=== PATIENT | female | born 1940 | race Caucasian/White ===

== ENCOUNTER → 2020-04-01 | Outpatient (REF) | payer OTHER ==
[2020-04-01 13:54] LABS: HEMOGLOBIN A1c 5.9 %
[2020-04-01 14:32] LABS: ALBUMIN 3.2 GM/DL (3.2-5.2); ALT/SGPT 47 U/L (12-78); BILIRUBIN,TOTAL 0.4 MG/DL (0.2-1.0); BLOOD UREA NITROGEN 17 MG/DL (7-18); CALCIUM LEVEL 8.9 MG/DL (8.8-10.2); CARBON DIOXIDE LEVEL 30 MEQ/L (21-32); CHLORIDE LEVEL 101 MEQ/L (98-107); CHOLESTEROL LEVEL 195 MG/DL (<200); CHOLESTEROL RISK RATIO 3.305 (<5); CREATININE FOR GFR 0.69 MG/DL (0.55-1.30); GLOMERULAR FILTRATION RATE > 60.0 (>32); GLUCOSE, FASTING 99 MG/DL (70-100); HDL CHOLESTEROL 59 MG/DL (>40); LDL CHOLESTEROL 113 MG/DL (<100); NON-HDL-C 136 MG/DL; POTASSIUM SERUM 4.1 MEQ/L (3.5-5.1); SODIUM LEVEL 137 MEQ/L (136-145); TOTAL 25(OH) VITAMIN D 33.5 NG/ML (30.0-100.0); TOTAL PROTEIN 7.3 GM/DL (6.4-8.2); TRIGLYCERIDES LEVEL 116 MG/DL (<150)
[2020-04-01 14:37] LABS: CREATININE, URINE 21.8 MG/DL; MALB URINE SIEMENS < 5.0 MG/L; MAU/CREAT RATIO 22.9 MCG/MG (0.0-30.0)
== END ==
LOC: M SFHCPLAZ 11:40
PROVIDERS: ATTEND Nurse Practitioner Adult Health
DX: I10 Essential (primary) hypertension (principal); E11.9 Type 2 diabetes mellitus without complications; E55.9 Vitamin D deficiency, unspecified; E03.9 Hypothyroidism, unspecified; Z13.220 Encounter for screening for lipoid disorders

== ENCOUNTER → 2021-01-06 | Outpatient (CLI) | payer OTHER ==
[2021-01-06 13:53] LABS: HEMOGLOBIN A1c 5.7 %
[2021-01-06 14:18] LABS: BILIRUBIN,TOTAL 0.3 MG/DL (0.2-1.0); CALCIUM LEVEL 8.8 MG/DL (8.8-10.2); CREATININE FOR GFR 0.98 MG/DL (0.55-1.30); POTASSIUM SERUM 4.2 MEQ/L (3.5-5.1)
[2021-01-06 14:19] LABS: CHOLESTEROL RISK RATIO 2.913 (<5); THYROID STIMULATING HORMONE 1.3 uIU/ML (0.358-3.740); TOTAL 25(OH) VITAMIN D 40.2 NG/ML (30.0-100.0); TOTAL PROTEIN 6.9 GM/DL (6.4-8.2)
--- NOTE | 2021-01-08 07:53 | REP ---
INDICATION: LOW BACK PAIN. COMPARISON: None. TECHNIQUE: AP and lateral views of the lower thoracic/lumbar spine FINDINGS: Advanced degenerative changes at the T12-L1 level including endplate sclerosis, joint space narrowing and bridging osteophytosis along with hypertrophic facet changes. Moderate to advanced degenerative changes are also noted throughout the remainder of the visualized lower thoracic and lumbosacral spine. Findings include endplate sclerosis, disc space narrowing, marginal osteophytosis and facet hypertrophy. No evidence for acute fracture/compression injury. IMPRESSION: Moderate to advanced multilevel degenerative spondylosis. <Electronically signed by Ferdinand Freire > 01/08/21 [id number]
== END ==
LOC: M PLAIMG 10:38
PROVIDERS: ATTEND Nurse Practitioner Adult Health
DX: M54.50 Low back pain, unspecified (principal)

== ENCOUNTER 2021-02-20 11:46 | Emergency (ER) | payer OTHER ==
[~2021-02-20] VITALS: Ht 162.6 cm; Wt 75.8 kg
--- OUTSIDE RECORDS SUMMARY | 2021-02-20 11:54 | CCD ---
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 Name Role Phone Octavio Tanya Unavailable PROBLEMS Type Condition ICD9-CM Code [id number] Code Onset Dates Condition S tatus W/U Status Risk SNOMED Code Notes Problem Vitamin D deficiency E55.9 Active confirmed 63697334 Problem Headache syndrome G44.89 Active confirmed 23 6812586 Problem Primary osteoarthritis involving multiple joints M 89.49 Active confirmed 162354948 Problem Essential hypertension I10 Active confirmed 53778390 Problem Neuropathy G62.9 Active confirmed 169967780 Problem Type 2 diabetes mellitus wit hout complication, without long-term current use of insulin E11.9 Active confirmed 668369814 Problem Anxiety F41.9 Active confirmed 07758682 Problem Acquired hypothyroidism E03.9 Active confirmed 088880399 Problem Sjogren's syndrome, with unspecified organ involvement M35.00 Active confirmed 06459193 Problem Hypothyroidism (acquired) E03.9 Active confirmed 124323787 Problem Frequent falls R29.6 Active confirmed 31182 2002 Problem Diabetes mellitus type 2 with complications E11.8 Active confirmed 63379545 ALLERGIES Allergen (clinical drug ingredient) Drug/Non Drug Allergy do cumented on EMR Reaction Allergy Type Onset Date Status pseudoephedrine Pseudoephedrine HCl([facility] Code:[address]-63) unkn own Drug Allergy Active ENCOUNTERS from 1940 to 2020-11-25 Encounter Location Date Provider Diagnosis [address] [phone] [place] [address] Nov, Tanya Cunningham IMMUNIZATIONS Vaccine Route Administration Date Status COVID-19 dose #2 given elsewhere Unspecified Unknown May 09, 2020 Administered COVID-19 dose #1 given elsewhere Unspecified Unknown Apr 07, 2020 Administered SOCIAL HISTORY Tobacco Use: Social History Observation Description Date Details (start date - stop date) Former Smoker Sex Assigned At : Social History Observation Description Sex Assigned At Unknown Education: Question Answer Notes Level of Education: Finished College Language: Question Answer Notes Languages spoken: marshallese Shinto: Question Answer Notes Shinto 08 Hinduism Sexual Hx: Question Answer Notes Had sex in the last 12 months (vaginal, oral, or anal)? No Have you ever had an STD? No Alcohol Screening: Question Answer Notes Did you have a drink containing alcohol in the past year? No Points 0 Interpretation Negative Tobacco Use: Question Answer Notes Are you a: former smoker How long has it been since you last smoked? > 10 years REASON FOR REFERRAL No Information VITAL SIGNS No information MEDICATIONS Medication SIG (Take, Route, Frequency, Duration) Notes Start Da te End Date Status miSOPROStol 100 MCG TAKE 2 TABLETS BY MOUTH TWICE DAILY for 90 Active Omeprazole Magnesium 20 MG 1 tablet 30 minutes before morning meal Orally Once a day for 30 day(s) Active Amitriptyline HCl 75 MG 1 tab Orally before bedtime for 90 day(s) Active Glucosamine Chondroitin Plus - 1 capsule 1500/1200 Orally daily Active Womens One Daily - 1 tab Orally Daily Active Metoprolol Succinate ER 50 MG 1 tablet Orally Once a day for 90 days Active Calcium 500+D3 500-400 MG-UNIT 1 tablet with a meal Or ally Once a day for 30 day(s) Active Synthroid 75 MCG TAKE 1 TABLET BY MOUTH ONCE DAILY IN THE MORNING ON AN EMPTY STOMACH for 90 Active Sertraline HCl 25 MG TAKE 1 TABLET BY MOUTH ONCE DAILY for 90 Active ZyrTEC Allergy 10 MG 1 tablet Orally Once a day for 30 day(s) Active busPIRone HCl 10 MG 1 tablet Orally Twice a day prn anxiety attack for 30 days May, Active AREDS OTC Active Diclofenac Sodium 75 MG TAKE 1 TABLET BY MOUTH TWICE DAILY for 90 Active PROCEDURES No Information RESULTS No Results REASON FOR VISIT medication MEDICAL (GENERAL) HISTORY Type Description Date Medical History diabetes mellitus type 2 Medical History essential hypertension Medical History cirrhosis cryptogenic Medical History abnormal liver function test s, related to known history of cirrhosis Medical History headache syndrome Medical History hypothyroidism Medical History sjogrens syndrome Medical History vitamin D did efficiency Medical History neuropathy Medical History anxiety and depression Medical History colonic diverticulosis Medical History esophageal reflux Medical History thrombocytopenia Medical History DEXA scan March 2019 Medical History former smoker, stopped in , smoked for 27 years, 1 pack per day Surgical History breast reduction Surgical History tubal ligation Surgical History colonoscopy 04/03/2016 Goals Section No Information Health Concerns No Information MEDICAL EQUIPMENT No Information MENTAL STATUS No Information FUNCTIONAL STATUS No Information ASSESSMENTS No Information PLAN OF TREATMENT Medication Medication Name Sig Start Date Stop Date Synthroid 75 MCG TAKE 1 TABLET BY MOUTH ONCE DAILY IN THE MORNING ON AN EMPTY STOMACH for 90 Amitriptyline HCl 75 MG 1 tab Orally before bedtime for 90 day(s ) miSOPROStol 100 MCG TAKE 2 TABLETS BY MOUTH TWICE DAILY for 90 Diclofenac Sodium 75 MG TAKE 1 TABLET BY MOUTH TWICE DAILY for 90 busPIRone HCl 10 MG 1 tablet Orally Twice a day prn anxiety attack for 30 days May, Metoprolol Succinate ER 50 MG 1 tablet Orally Once a day for 90 days Sertraline HCl 25 MG TAKE 1 TABLET BY MOUTH ONCE DAILY for 90 Next Appt Details Provider Name:Tanya Cuninngham, 01:00:00 PM, [address] [facility], , [place], [address], Insurance Providers Payer Name Payer Address Payer Phone Insured Name Patient Relati onship to Insured Coverage Start Date Coverage End Date [facility] [address] [address] [facility] [phone] ANDREW FULLER self
--- OUTSIDE RECORDS SUMMARY | 2021-02-20 11:54 | CCD ---
Author Author [facility] Organization [facility] Address Unknown Phone Unavailable Care Team Providers Care Acid Blower Name Role Phone Tanya Cunningham Unavailable PROBLEMS Type Condition ICD9-CM Code DIV85-HB Code Onset Dates Condition S tatus W/U Status Risk SNOMED Code Notes Problem Vitamin D deficiency E55.9 Active confirmed 73472867 Problem Type 2 diabetes mellitus wit hout complication, without long-term current use of insulin E11.9 Active confirmed 305649555 Problem Acquired hypothyroidism E03.9 Active confirmed 375688069 Problem Essential hypertension I10 Active confirmed 53135805 Problem Neuropathy G62.9 Active confirmed 208477047 Problem Anxiety F41.9 Active confirmed 11196722 Problem Headache syndrome G44.89 Active confirmed 23 8671253 Problem Abnormal liver function test R94.5 Active confirme d 769354012 Problem Diabetes mellitus type 2 with complications E11.8 Active confirmed 14005342 Problem Other chronic pain G89.29 Active confirmed 8 9077715 Problem Frequent falls R29.6 Active confirmed 77616 2002 Problem 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 Code:[address]-87) unkn own Drug Allergy Active ENCOUNTERS from 1940 to 2020-12-19 Encounter Location Date Provider Diagnosis [address] [phone] [place] [address] 30 Nov, 2020 Tanya Cunningham Diabetes mellitus type 2 wit h complications E11.8 ; Medicare annual wellness visit, subsequent Z00.00 ; Essential hypertension I10 ; Sjogren's syndrome, with unspecified organ involvement M35.00 ; Abnormal liver function test R94.5 ; Biliary cirrhosis K74.5 ; Headache syndrome G44.89 ; Vitamin D deficiency E55.9 ; Anxiety F41.9 ; Primary osteoarthritis involving multiple joints M89.49 ; Frequent falls R29.6 ; Neuropathy G62.9 ; Low back pain M54.5 ; Acquired hypothyroidism E03.9 ; Change in vision H53.9 ; Screening, lipid Z13.220 and Seborrheic dermatitis L21.9 IMMUNIZATIONS Vaccine Route Administration Date Status COVID-19 [...] College Language: Question Answer Notes Languages spoken: new zealander Sikhism: Question Answer Notes Sikhism 08 Latter-Day Sexual Hx: Question Answer Notes Had sex [...] smoked? > 10 years REASON FOR REFERRAL from 1939 to 2020-12-19 Reason moved to [facility], hx Sjogrens would like to continue to follow with Manager Military Diagnosis 1 Sjogren's syndrome, with uns pecified organ involvement (M35.00) Referral Organization [facility] Sharif Referring Provider First Name Tanya Referring Provider Last Name Octavio Referring Provider Specialty Family Medicine Referred Organization [facility] Rheumatology Referred Provider Jenifer Desai Referred Address [address] [place] [phone], [place],[address] Referred Provider Specialty Rheumatology Referral Priority Routine General Notes Sammie Jalloh 12/15/2020 1:4 5:56 PM > referral faxed Reason please eval and treat giovanny parker in vision requesting Dr. Cordero if possible Diagnosis 1 Sjogren's syndrome, with uns pecified organ involvement (M35.00) Diagnosis 2 Change in vision (H53.9) Referral Organization [facility] [place] Referring Provider First Name Tanya Referring Provider Last Name Octavio Referring Provider Specialty Family Medicine Referred Provider Jonny Martinez Referred Provider Specialty Ophthalmology Referral Priority Routine General Notes JallohAndrew sandovalar 12/15/2020 1:4 6:33 PM > referral faxed VITAL SIGNS Weight 166 lbs Nov, 2020 Weight-kg 75.3 kg Nov, 2020 Height 62 in Nov, 2020 BMI 30.36 kg/m2 Nov, Heart Rate 80 /min Nov, Respiratory Rate 18 /min Nov, Temperature 97.5 degrees Fahrenheit Nov, Oximetry 99% Nov, Blood pressure systolic 134 mm Hg Nov, Blood pressure diastolic 72 mm Hg Nov, MEDICATIONS Medication SIG (Take, Route, Frequency, Duration) Notes Start Da te End Date Status Womens One Daily - 1 tab Orally Daily Unknown busPIRone HCl 10 MG 1 tablet Orally Twice a day prn anxiety attack for 30 days Active Diclofenac Sodium 75 MG TAKE 1 TABLET BY MOUTH TWICE DAILY for 90 Unknown Zoloft 25 MG 1 tablet Orally Once a day for 90 days Active miSOPROStol 100 MCG TAKE 2 TABLETS BY MOUTH TWICE DAILY for 90 Unknown Sertraline HCl 25 MG TAKE 1 TABLET BY MOUTH ONCE DAILY for 90 Unknown Calcium 500+D3 500-400 MG-UNIT 1 tablet with a meal Or ally Once a day for 30 day(s) Unknown Metoprolol Succinate ER 50 MG 1 tablet Orally Once a day for 90 days Active Synthroid 75 MCG TAKE 1 TABLET BY MOUTH ONCE DAILY IN THE MORNING ON AN EMPTY STOMACH for 90 Unknown ZyrTEC Allergy 10 MG 1 tablet Orally Once a day for 30 day(s) Unknown Glucosamine Chondroitin Plus - 1 capsule 1500/1200 Orally daily Unknown AREDS OTC Unknown Amitriptyline HCl 75 MG 1 tab Orally before bedtime Active Omeprazole Magnesium 20 MG 1 tablet 30 minutes before morning meal Orally Once a day for 30 day(s) Unknown PROCEDURES No Information RESULTS No Results REASON FOR VISIT November 2020 [facility] MEDICAL (GENERAL) HISTORY Type Description Date Medical History diabetes mellitus type 2-diet controlled Medical History essential hypertension Medical History sjogrens syndrome Medical History cirrhosis cryptogenic Medical History abnormal liver function test s, related to known history of cirrhosis Medical History hypothyroidism Medical History headache syndrome Medical History vitamin D did efficiency Medical History neuropathy Medical History anxiety and depression Medical History colonic diverticulosis Medical History esophageal reflux Medical History thrombocytopenia Medical History former smoker, stopped in , smoked for 27 years, 1 pack per day Medical History Atrial fib cardioverted successfully 201 7 Medical History Seborrheic dermatitis Surgical History Dexa Scan [place] 03/2019 Surgical History cardioversion-afib successful 02/2017 Surgical History Nuclear stress test [place] normal per d ocumentation 02/2017 Surgical History colonoscopy-[place] 04/03/2016 Surgical History breast reduction Surgical History tubal ligation Goals Section No Information Health Concerns No Information MEDICAL EQUIPMENT No Information MENTAL STATUS No Information FUNCTIONAL STATUS No Information ASSESSMENTS Encounter Date Diagnosis Assessment Notes Treatment Notes Treatm ent Clinical Notes Nov, Diabetes mellitus type 2 with complications (ICD -10 - E11.8) Last office note from [place] reviewed, hga1c acceptable per doctors documentation diet Janaury 2020 5.9, controlled question if neuropathy is from past history, or related to back, or Sjogren's Nov, Medicare annual wellness visit, subsequent (ICD- 10 - Z00.00) age appropriate anticipatory guidance given, per USPSTF recommendations; immunizations up to date. discussed plans for implementing improvement in identified areas Nov, Essential hypertension (ICD-10 - I10) Blood pressure meets goal today remote history of atrial fib with successful cardioversion remains on beta-shmuel past records indicate he had a nuclear stress test 02/2017 which was normal no other information available appears she used to follow with a allergist/immunologist in [place] determined today Nov, Sjogren's syndrome, with uns pecified organ involvement (ICD-10 - M35.00) States today she used to follow with a physicist nuclear in [place] for her Sjogren's, discussed with patient and daughter will refer to rheumatology, Nov, Abnormal liver function test (ICD-10 - R94.5) per documentation in old records Nov, Biliary cirrhosis (ICD-10 - K74.5) Prior notes indicate cirrhosis is possible autoimmune versus cryptogenic, GORGE 1:8, no ASMA Nov, Headache syndrome (ICD-10 - G44.89) has been on amitriptyline for a few years Nov, Vitamin D deficiency (ICD-10 - E55.9) taking 2 tabs daily does not know what dose. Nov, Anxiety (ICD-10 - F41.9) Tolerating Zoloft 25 mg daily. Does not monitor increase in dose if she does she will call the office. Has leftover Ativan from [place] that she has been using for when she has panic attacks discussed that we'll order BuSpar 10 mg by mouth twice a day when necessary panic attack risk and benefits of medication discussed states she has not used Nov, Primary osteoarthritis involving multipl e joints (ICD-10 - M89.49) per prior documentation in the old record she brought with her. Nov, Frequent falls (ICD-10 - R29.6) offered physical therapy, for balance and strength, pt refused today has gone before in [place] Nov, Neuropathy (ICD-10 - G62.9) Per prior documentation only states sensory axonal> demyelinating possibly related to Sjogren's Nov, Low back pain (ICD-10 - M54.5) Questionable arthritis there are no prior documentation to assist, will obtain an x-ray for initial review, refer Nov, Acquired hypothyroidism (ICD-10 - E03.9) Remains on replacement Nov, Change in vision (ICD-10 - H53.9) Requesting referral for eye examination due to change in vision Nov, Screening, lipid (ICD-10 - Z13.220) Nov, Seborrheic dermatitis (ICD-10 - L21.9) Used to use Plexion wash, ketoconazole,elocon PLAN OF TREATMENT Medication Medication Name Sig Start Date Stop Date busPIRone HCl 10 MG 1 tablet Orally Twice a day prn anxiety attack for 30 days Zoloft 25 MG 1 tablet Orally Once a day for 90 days Amitriptyline HCl 75 MG 1 tab Orally before bedtime Metoprolol Succinate ER 50 MG 1 tablet Orally Once a day for 90 days Treatment Notes Assessment Notes Clinical Notes Acquired hypothyroidism Remains on repla cement Diabetes mellitus type 2 with complications Last office note from [place] reviewed, hga1c acceptable per doctors documentation diet 2020 5.9, controlled question if neuropathy is from past history, or related to back, or Sjogren's Low back pain Questionable arthrit is there are no prior documentation to assist, will obtain an x-ray for initial review, refer Medicare annual wellness visit, subsequent age appropriate anticipatory guidance given, per USPSTF recommendations; immunizations up to date. discussed plans for implementing improvement in identified areas Seborrheic dermatitis Used to use Plexio n wash, ketoconazole,elocon Essential hypertension Blood pressure me ets goal today remote history of atrial fib with successful cardioversion remains on beta-shmuel past records indicate he had a nuclear stress test 02/2017 which was normal no other in formation available appears she used to follow with a allergist/immunologist in [place] determined today Change in vision Requesting referral for eye examination due to change in vision Sjogren's syndrome, with unspecified organ involvement States today she used to follow with a physicist nuclear in [place] for her Sjogren's, discussed with patient and daughter will refer to rheumatology, Abnormal liver function test per alfie durham in old records Biliary cirrhosis Prior notes indicate cirrhosis is possible autoimmune versus cryptogenic, GORGE 1:8, no ASMA Headache syndrome has been on amitript yline for a few years Neuropathy Per prior documentat ion only states sensory axonal> demyelinating possibly related to Sjogren's Frequent falls offered physical the rapy, for balance and strength, pt refused today has gone before in [place] Vitamin D deficiency taking 2 tabs daily does not know what dose. Anxiety Tolerating Zoloft 25 mg daily. Does not monitor increase in dose if she does she will call the office. Has leftover Ativan from [place] that she has been using for when she has panic attacks discussed that we'll order BuSpar 10 mg by mouth twice a day when necessary panic attack risk and benefits of medication discussed states she has not used Primary osteoarthritis involving multiple joints per prior documentation in the old record she brought with her. Treatment Notes Test Name Order Date VITAMIN D 25-HYDROXY 2020-12-15 Comprehensive Metabolic Profile (CMP) 2020-12-15 TSH 2020-12-15 LIPID PANEL (CARDIAC RISK) 2020-12-15 [facility] Spine, THORACOLUMBAR 2 VIEW 2020-12-15 HEMOGLOBIN A1c 2020-12-15 Referrals Referral Date Details moved to [facility], hx Sjogr would like to continue to follow with Manager Military, Jenifer Desai, [address] [place] [address] [place], [address], please eval and treat giovnany parker in vision requesting Dr. Cordero if possible, Jonny Martinez Next Appt Details 6 months dm2 visit Reason: Provider Name:Tanya Cunningham, 01:30:00 PM, [address] [facility], , [place], [address], Insurance Providers Payer Name Payer Address Payer Phone Insured Name Patient Relati onship to Insured Coverage Start Date Coverage End Date [facility] [address] [address] [facility] [phone] ANDREW FULLER self
--- OUTSIDE RECORDS SUMMARY | 2021-02-20 11:55 | CCD ---
Author Author [facility] Organization [facility] Address Unknown Phone Unavailable Support Name Relationship Address Phone RETIRED Next Of Kin Unknown Unavailable WENDY ORDONEZ Next Of Kin [phone] [place] [address] Wendy Ordonez [address] [place] [address] [phone] Re-disclosure Warning The records that you are about to access may contain information from federally-assisted alcohol or drug abuse programs. If such information is present, then the following federally mandated warning applies: This information has been disclosed to you from records protected by federal confidentiality rules (42 CFR part 2). The federal rules prohibit you from making any further disclosure of this information unless further disclosure is expressly permitted by the written consent of the person to whom it pertains or as otherwise permitted by 42 CFR part 2. A general authorization for the release of medical or other information is NOT sufficient for this purpose. The Federal rules restrict any use of the information to criminally investigate or prosecute any alcohol or drug abuse patient.The records that you are about to access may contain highly sensitive health information, the redisclosure of which is protected by Article 27-F of the [facility] Public Health law. If you continue you may have access to information: Regarding HIV / AIDS; Provided by facilities licensed or operated by the [facility] Office of Mental Health; or Provided by the [facility] Office for People With Developmental Disabilities. If such information is present, then the following [facility] mandated warning applies: This information has been disclosed to you from confidential records which are protected by state law. State law prohibits you from making any further disclosure of this information without the specific written consent of the person to whom it pertains, or as otherwise permitted by law. Any unauthorized further disclosure in violation of state law may result in a fine or half-way sentence or both. A general authorization for the release of medical or other information is NOT sufficient authorization for further disc losure. Encounters Encounter Providers Location Date Indications Data Source(s ) Office Visit, Est Pt., Level 3 PC [address] [place] [address] 12/15/2020 12:00:00 AM EDT eCW1 ([facility]) Unknown [address] [facility] [id number] 11/24/2020 12:00:00 AM EDT eCW1 ([facility]) Unknown [address] [facility] [place] [address] 08/29/2020 12:00:00 AM EDT eCW1 ([facility]) Outpatient [address] [facility] [id number] 06/15/2020 12:00:00 AM EDT eCW1 ([facility]) Outpatient [address] [facility] [address] 04/26/2020 12:00:00 AM EST eCW1 ([facility]) Immunizations Vaccine Date Status Description Data Source(s) COVID-19 VACCINE Moderna 01/06/2021 12:00:00 AM EDT completed [facility] Vaccine Series Complete: YESThis Data wa s Submitted to [facility] Via [employer]. COVID-19 dose #2 given elsewhere Unspecified 05/09/2020 01:2 8:00 PM EST completed eCW1 ([facility]) COVID-19 dose #2 given elsewhere Unspecified 05/09/2020 01:2 8:00 PM EST completed eCW1 ([facility]) COVID-19 dose #2 given elsewhere Unspecified 05/09/2020 01:2 8:00 PM EST completed eCW1 ([facility]) COVID-19 dose #2 given elsewhere Unspecified 05/09/2020 01:2 8:00 PM EST completed eCW1 ([facility]) COVID-19 VACCINE Moderna 05/09/2020 12:00:00 AM EST completed [facility] Vaccine Series Complete: YESThis Data wa s Submitted to [facility] Via [employer]. COVID-19 dose #1 given elsewhere Unspecified 04/07/2020 01:2 8:00 PM EST completed eCW1 ([facility]) COVID-19 dose #1 given elsewhere Unspecified 04/07/2020 01:2 8:00 PM EST completed eCW1 ([facility]) COVID-19 dose #1 given elsewhere Unspecified 04/07/2020 01:2 8:00 PM EST completed eCW1 ([facility]) COVID-19 dose #1 given elsewhere Unspecified 04/07/2020 01:2 8:00 PM EST completed eCW1 ([facility]) COVID-19 VACCINE Moderna 04/07/2020 12:00:00 AM EST completed [facility] Vaccine Series Complete: NOThis Data was Submitted to [facility] Via [employer]. INFLUENZA VIRUS VACCINE QUADRIVAL SPLIT 2019-(65 YR UP)/PF 01/05/2020 12:00:00 AM EDT completed [facility] Medications Medication Brand Name Start Date Product Form Dose Route Admi nistrative Instructions Pharmacy Instructions Status Indications Reaction Description Data Source(s) 100 mcg/0.5 mL 01/06/2021 12:00:00 AM EDT suspension 0 INJECT DIRECTED (THIRD DOSE) INJECT DIRECTED (THIRD DOSE) SOLD: 01/06/2021 [facility] 240 mcg/0.7 mL 01/06/2021 12:00:00 AM EDT syringe 0 INJECT DIRECTED INJECT DIRECTED SOLD: 01/06/2021 [facility] buspirone hydrochloride 10 MG Oral Tablet busPIRone HC l 10 MG busPIRone HCl 10 MG 06/15/2020 12:00:00 AM EDT 1.0 {tablet} activ e busPIRone HCl 10 MG eCW1 ([facility]) buspirone hydrochloride 10 MG Oral Tablet busPIRone HC l 10 MG busPIRone HCl 10 MG 06/15/2020 12:00:00 AM EDT 1.0 {tablet} activ e busPIRone HCl 10 MG eCW1 ([facility]) buspirone hydrochloride 10 MG Oral Tablet BusPIRone HC l 10 MG BusPIRone HCl 10 MG 06/15/2020 12:00:00 AM EDT 1.0 {tablet} activ e BusPIRone HCl 10 MG eCW1 ([facility]) Sertraline 25 MG Oral Tablet [Zoloft] Zoloft 25 MG Zoloft 25 MG 04/26/2020 12:00:00 AM EST 1.0 {tablet} active Zo loft 25 MG eCW1 ([facility]) Levothyroxine Sodium 0.075 MG Oral Tablet [Synthroid] Synthroid 75 MCG Synthroid 75 MCG 04/07/2020 12:00:00 AM EST active Synthroid 75 MCG eCW1 ([facility]) Diclofenac Sodium 75 MG Delayed Release Oral Tablet Diclofen ac Sodium 75 MG 03/16/2020 12:00:00 AM EST 1.0 {tablet} active Diclofenac Sodium 75 MG eCW1 ([facility]) Misoprostol 0.1 MG Oral Tablet [Cytotec] Cytotec 100 MCG Cyt otec 100 MCG 02/24/2020 12:00:00 AM EST active Cytotec 100 MCG eCW1 ([facility]) Misoprostol 0.1 MG Oral Tablet [Cytotec] Cytotec 100 MCG Cyt otec 100 MCG 02/24/2020 12:00:00 AM EST active Cytotec 100 MCG eCW1 ([facility]) Misoprostol 0.1 MG Oral Tablet [Cytotec] Cytotec 100 MCG Cyt otec 100 MCG 02/24/2020 12:00:00 AM EST active Cytotec 100 MCG eCW1 ([facility]) Insurance Providers Payer name Policy type / Coverage type Policy ID Covered democrat ID Covered democrat's relationship to rowley Policy Rowley Plan Information [facility] [id number] Problems, Conditions, and Diagnoses Code Display Name Description Problem Type Effective Dates Data Source(s) K74.5 3334537 Biliary cirrhosis Problem 12/17/2020 12:00:0 0 AM EDT eCW1 ([facility]) R94.5 [id number] Abnormal liver function test Problem 021 12:00:00 AM EDT eCW1 ([facility]) G89.29 46649118 Other chronic pain Problem 12/15/2020 12:00: 00 AM EDT eCW1 ([facility]) E03.9 092024045 Hypothyroidism (acquired) Problem 04/26/2020 12:00:00 AM EST eCW1 ([facility]) M35.00 50210329 Sjogren's syndrome, with unspecified orga n involvement Problem 04/26/2020 12:00:00 AM EST eCW1 ([facility]) M89.49 542396499 Primary osteoarthritis involving multiple joints Problem 04/26/2020 12:00:00 AM EST eCW1 ([facility]) R29.6 055722196 Frequent falls Problem 04/26/2020 12:00:00 A M EST eCW1 ([facility]) E11.8 02736068 Diabetes mellitus type 2 with complicatio ns Problem 04/26/2020 12:00:00 AM EST eCW1 ([facility]) G44.89 996068658 Headache syndrome Problem 04/26/2020 12:00:0 0 AM EST eCW1 ([facility]) F41.9 99188522 Anxiety Problem 04/26/2020 12:00:00 AM ES T eCW1 ([facility]) G62.9 089378217 Neuropathy Problem 04/26/2020 12:00:00 AM ES T eCW1 ([facility]) I10 13860892 Essential hypertension Problem 03/09/2020 12 :00:00 AM EST eCW1 ([facility]) E03.9 712278616 Acquired hypothyroidism Problem 03/09/2020 1 2:00:00 AM EST eCW1 ([facility]) E11.9 570302328 Type 2 diabetes helga itus without complication, without long-term current use of insulin Problem 03/09/2020 12:00:00 AM EST eCW1 ([facility]) E55.9 37940011 Vitamin D deficiency Problem 03/09/2020 12:0 0:00 AM EST eCW1 ([facility]) Surgeries/Procedures No Information Results No Information Social History Code Duration Value Status Description Data Source(s ) Smoking 12/17/2020 12:00:00 AM EDT Former Smoker completed Former Smoker eCW1 ([facility]) Smoking 06/15/2020 12:00:00 AM EDT Former Smoker completed Former Smoker eCW1 ([facility]) Smoking 06/15/2020 12:00:00 AM EDT Former Smoker completed Former Smoker eCW1 ([facility]) Smoking 06/15/2020 12:00:00 AM EDT Former Smoker completed Former Smoker eCW1 ([facility]) Smoking 04/26/2020 12:00:00 AM EST Former Smoker completed Former Smoker eCW1 ([facility]) Vital Signs ID Date Data Source UNK Name Value Range Interpretation Code Description Data Source(s) Body weight 166 [lb_av] 166 [lb_av] eCW1 ([facility]) Body weight 75.3 kg 75.3 kg eCW1 ([facility]) Body height 62 [in_i] 62 [in_i] eCW1 ([facility]) Body mass index (BMI) [Ratio] 30.36 kg/m2 30.36 kg/m2 eCW1 ([facility]) Heart rate 80 /min 80 /min eCW1 ([facility]) Respiratory rate 18 /min 18 /min eCW1 ([facility]) Body temperature 97.5 [degF] 97.5 [degF] eCW1 ( [facility]) Systolic blood pressure 134 mm[Hg] 134 mm[Hg] e CW1 ([facility]) Diastolic blood pressure 72 mm[Hg] 72 mm[Hg] eCW1 ([facility]) Body weight 173.2 [lb_av] 173.2 [lb_av] eCW1 ([facility]) Body height 62 [in_i] 62 [in_i] eCW1 ([facility]) Body mass index (BMI) [Ratio] 31.68 kg/m2 31.68 kg/m2 eCW1 ([facility]) Heart rate 72 /min 72 /min eCW1 ([facility]) Respiratory rate 18 /min 18 /min eCW1 ([facility]) Body temperature 97.7 [degF] 97.7 [degF] eCW1 ( [facility]) Systolic blood pressure 140 mm[Hg] 140 mm[Hg] e CW1 ([facility]) Diastolic blood pressure 72 mm[Hg] 72 mm[Hg] eCW1 ([facility]) Body weight 171 [lb_av] 171 [lb_av] eCW1 ([facility]) Body height 62 [in_i] 62 [in_i] eCW1 ([facility]) Body mass index (BMI) [Ratio] 31.27 kg/m2 31.27 kg/m2 eCW1 ([facility]) Heart rate 76 /min 76 /min eCW1 ([facility]) Respiratory rate 18 /min 18 /min eCW1 ([facility]) Body temperature 98.6 [degF] 98.6 [degF] eCW1 ( [facility]) Systolic blood pressure 160 mm[Hg] 160 mm[Hg] e CW1 ([facility]) Diastolic blood pressure 74 mm[Hg] 74 mm[Hg] eCW1 ([facility]) Patient Treatment Plan of Care Planned Activity Planned Date Details Description Data Source (s) buspirone hydrochloride 10 MG Oral Tablet 06/15/2020 12:00:00 AM ED T eCW1 ([facility]) buspirone hydrochloride 10 MG Oral Tablet 06/15/2020 12:00:00 AM ED T eCW1 ([facility]) buspirone hydrochloride 10 MG Oral Tablet 06/15/2020 12:00:00 AM ED T eCW1 ([facility]) Sertraline 25 MG Oral Tablet [Zoloft] 04/26/2020 12:00:00 AM EST eCW1 ([facility]) Levothyroxine Sodium 0.075 MG Oral Tablet [Synthroid] 04/07/2020 12:00:00 AM EST eCW1 ([facility])
--- NOTE | 2021-02-20 12:28 | REP ---
INDICATION: CHEST PAIN. COMPARISON: None. TECHNIQUE: Single portable AP view of the chest was performed. FINDINGS: There is no acute infiltrate or pulmonary edema. Lungs are clear. The heart is not significantly enlarged. The mediastinal silhouette is unremarkable. The visualized osseous structures are intact.There is mild elevation of the right hemidiaphragm. IMPRESSION: No acute pulmonary disease. <Electronically signed by Boyd Skinner > 02/20/21 [id number]
[2021-02-20 13:21] LABS: BASO % 0.3 % (0.0-1.0); EOS % 0.6 % (0.0-3.0); HEMATOCRIT 39.7 % (36.0-47.0); HEMOGLOBIN 12.8 g/dl (12.0-15.5); LYMPH # 0.7 10^3/uL (1.5-5.0); LYMPH % 18.8 % (24.0-44.0); MEAN CORPUSCULAR HGB CONC 32.2 g/dl (32.0-36.5); MEAN CORPUSCULAR VOLUME 93.2 fl (80.0-96.0); MONO # 0.4 10^3/uL (0.0-0.8); NEUTROPHILS # 2.5 10^3/uL (1.5-8.5); NEUTROPHILS % 68.7 % (36.0-66.0); PLATELET COUNT, AUTOMATED 114 10^3/uL (150-450); RED BLOOD COUNT 4.26 10^6/uL (4.00-5.40); WHITE BLOOD COUNT 3.6 10^3/uL (4.0-10.0)
[2021-02-20 13:45] LABS: ALBUMIN 3.6 GM/DL (3.2-5.2); BILIRUBIN,DIRECT 0.2 MG/DL (0.0-0.2); BILIRUBIN,TOTAL 0.4 MG/DL (0.2-1.0); TOTAL PROTEIN 7.9 GM/DL (6.4-8.2)
[2021-02-20 13:47] LABS: BLOOD UREA NITROGEN 16 MG/DL (7-18); CALCIUM LEVEL 9.6 MG/DL (8.8-10.2); CARBON DIOXIDE LEVEL 29 MEQ/L (21-32); CHLORIDE LEVEL 105 MEQ/L (98-107); CREATININE FOR GFR 0.68 MG/DL (0.55-1.30); GLOMERULAR FILTRATION RATE > 60.0 (>32); GLUCOSE, FASTING 106 MG/DL (70-100); POTASSIUM SERUM 3.9 MEQ/L (3.5-5.1); SODIUM LEVEL 140 MEQ/L (136-145)
--- OUTSIDE RECORDS SUMMARY | 2021-02-20 13:58 | CCD ---
Author Author [facility] Organization [facility] Address Unknown Phone Unavailable Support Name Relationship Address Phone RETIRED Next Of Kin Unknown Unavailable WENDY ORDONEZ Next Of Kin [address] [place] [address] Wendy Ordonez [address] [place] [address] [phone] Re-disclosure Warning The records that you are [...] is protected by Article 27-F of the [facility] Public Health law. If you continue you may have access to information: Regarding HIV / AIDS; Provided by facilities licensed or operated by the [facility] Office of Mental Health; or Provided by the [facility] Office for People With Developmental Disabilities. If such information is present, then the following [facility] mandated warning applies: This information has been [...] law may result in a fine or fpc sentence or both. A general authorization for the release of medical or other information is NOT sufficient authorization for further disc losure. Encounters Encounter Providers Location Date Indications Data Source(s ) Office Visit, Est Pt., Level [address] PC [address] [place] [address] 12/15/2020 12:00:00 AM EDT eCW1 ([facility]) Unknown [address] [facility] [id number] 11/24/2020 12:00:00 AM EDT eCW1 ([facility]) Unknown [address] [facility] [address] 08/29/2020 12:00:00 AM EDT eCW1 ([facility]) Outpatient [address] [facility] [id number] 06/15/2020 12:00:00 AM EDT eCW1 ([facility]) Outpatient [address] [facility] [id number] 04/26/2020 12:00:00 AM EST eCW1 ([facility]) Immunizations Vaccine Date Status Description Data Source(s) COVID-19 VACCINE Moderna 01/06/2021 12:00:00 AM EDT completed [facility] Vaccine Series Complete: YESThis Data wa s Submitted to [facility] Via [employer]. COVID-19 dose #2 given elsewhere Unspecified 05/09/2020 01:2 8:00 PM EST completed eCW1 ([facility]) COVID-19 dose #2 given elsewhere Unspecified 05/09/2020 01:2 8:00 PM EST completed eCW1 ([facility]) COVID-19 dose #2 given elsewhere Unspecified 05/09/2020 01:2 8:00 PM EST completed eCW1 ([facility]) COVID-19 dose #2 given elsewhere Unspecified 05/09/2020 01:2 8:00 PM EST completed eCW1 ([facility]) COVID-19 VACCINE Moderna 05/09/2020 12:00:00 AM EST completed [facility] Vaccine Series Complete: YESThis Data wa s Submitted to [facility] Via [employer]. COVID-19 dose #1 given elsewhere Unspecified 04/07/2020 01:2 8:00 PM EST completed eCW1 ([facility]) COVID-19 dose #1 given elsewhere Unspecified 04/07/2020 01:2 8:00 PM EST completed eCW1 ([facility]) COVID-19 dose #1 given elsewhere Unspecified 04/07/2020 01:2 8:00 PM EST completed eCW1 ([facility]) COVID-19 dose #1 given elsewhere Unspecified 04/07/2020 01:2 8:00 PM EST completed eCW1 ([facility]) COVID-19 VACCINE Moderna 04/07/2020 12:00:00 AM EST completed [facility] Vaccine Series Complete: NOThis Data was Submitted to [facility] Via [employer]. INFLUENZA VIRUS VACCINE QUADRIVAL SPLIT 2019-(65 YR [...] activ e busPIRone HCl 10 MG eCW1 ([facility]) buspirone hydrochloride 10 MG Oral Tablet busPIRone HC l 10 MG busPIRone HCl 10 MG 06/15/2020 12:00:00 AM EDT 1.0 {tablet} activ e busPIRone HCl 10 MG eCW1 ([facility]) buspirone hydrochloride 10 MG Oral Tablet BusPIRone HC l 10 MG BusPIRone HCl 10 MG 06/15/2020 12:00:00 AM EDT 1.0 {tablet} activ e BusPIRone HCl 10 MG eCW1 ([facility]) Sertraline 25 MG Oral Tablet [Zoloft] Zoloft 25 MG Zoloft 25 MG 04/26/2020 12:00:00 AM EST 1.0 {tablet} active Zo loft 25 MG eCW1 ([facility]) Levothyroxine Sodium 0.075 MG Oral Tablet [Synthroid] Synthroid 75 MCG Synthroid 75 MCG 04/07/2020 12:00:00 AM EST active Synthroid 75 MCG eCW1 ([facility]) Diclofenac Sodium 75 MG Delayed Release Oral Tablet Diclofen ac Sodium 75 MG 03/16/2020 12:00:00 AM EST 1.0 {tablet} active Diclofenac Sodium 75 MG eCW1 ([facility]) Misoprostol 0.1 MG Oral Tablet [Cytotec] Cytotec 100 MCG Cyt otec 100 MCG 02/24/2020 12:00:00 AM EST active Cytotec 100 MCG eCW1 ([facility]) Misoprostol 0.1 MG Oral Tablet [Cytotec] Cytotec 100 MCG Cyt otec 100 MCG 02/24/2020 12:00:00 AM EST active Cytotec 100 MCG eCW1 ([facility]) Misoprostol 0.1 MG Oral Tablet [Cytotec] Cytotec 100 MCG Cyt otec 100 MCG 02/24/2020 12:00:00 AM EST active Cytotec 100 MCG eCW1 ([facility]) Insurance Providers Payer name Policy type / Coverage type Policy ID Covered libertarian ID Covered libertarian's relationship to rowley Policy Rowley Plan Information [facility] [id number] Problems, Conditions, and Diagnoses Code Display Name Description Problem Type Effective Dates Data Source(s) K74.5 0007422 Biliary cirrhosis Problem 12/17/2020 12:00:0 0 AM EDT eCW1 ([facility]) R94.5 669828953 Abnormal liver function test Problem 021 12:00:00 AM EDT eCW1 ([facility]) G89.29 06642162 Other chronic pain Problem 12/15/2020 12:00: 00 AM EDT eCW1 ([facility]) E03.9 185825228 Hypothyroidism (acquired) Problem 04/26/2020 12:00:00 AM EST eCW1 ([facility]) M35.00 05667854 Sjogren's syndrome, with unspecified orga n involvement Problem 04/26/2020 12:00:00 AM EST eCW1 ([facility]) M89.49 505077077 Primary osteoarthritis involving multiple joints Problem 04/26/2020 12:00:00 AM EST eCW1 ([facility]) R29.6 060588372 Frequent falls Problem 04/26/2020 12:00:00 A M EST eCW1 ([facility]) E11.8 17654860 Diabetes mellitus type 2 with complicatio ns Problem 04/26/2020 12:00:00 AM EST eCW1 ([facility]) G44.89 210846203 Headache syndrome Problem 04/26/2020 12:00:0 0 AM EST eCW1 ([facility]) F41.9 93587492 Anxiety Problem 04/26/2020 12:00:00 AM ES T eCW1 ([facility]) G62.9 449372798 Neuropathy Problem 04/26/2020 12:00:00 AM ES T eCW1 ([facility]) I10 21228128 Essential hypertension Problem 03/09/2020 12 :00:00 AM EST eCW1 ([facility]) E03.9 531341234 Acquired hypothyroidism Problem 03/09/2020 1 2:00:00 AM EST eCW1 ([facility]) E11.9 026256346 Type 2 diabetes helga itus without complication, without long-term current use of insulin Problem 03/09/2020 12:00:00 AM EST eCW1 ([facility]) E55.9 39258370 Vitamin D deficiency Problem 03/09/2020 12:0 0:00 AM EST eCW1 ([facility]) Surgeries/Procedures No Information Results No Information Social History Code Duration Value Status Description Data Source(s ) Smoking 12/17/2020 12:00:00 AM EDT Former Smoker completed Former Smoker eCW1 ([facility]) Smoking 06/15/2020 12:00:00 AM EDT Former Smoker completed Former Smoker eCW1 ([facility]) Smoking 06/15/2020 12:00:00 AM EDT Former Smoker completed Former Smoker eCW1 ([facility]) Smoking 06/15/2020 12:00:00 AM EDT Former Smoker completed Former Smoker eCW1 ([facility]) Smoking 04/26/2020 12:00:00 AM EST Former Smoker completed Former Smoker eCW1 ([facility]) Vital Signs ID Date Data Source UNK Name Value Range Interpretation Code Description Data Source(s) Body weight 166 [lb_av] 166 [lb_av] eCW1 ([facility]) Body weight 75.3 kg 75.3 kg eCW1 ([facility]) Body height 62 [in_i] 62 [in_i] eCW1 ([facility]) Body mass index (BMI) [Ratio] 30.36 kg/m2 30.36 kg/m2 eCW1 ([facility]) Heart rate 80 /min 80 /min eCW1 ([facility]) Respiratory rate 18 /min 18 /min eCW1 ([facility]) Body temperature 97.5 [degF] 97.5 [degF] eCW1 ( [facility]) Systolic blood pressure 134 mm[Hg] 134 mm[Hg] e CW1 ([facility]) Diastolic blood pressure 72 mm[Hg] 72 mm[Hg] eCW1 ([facility]) Body weight 173.2 [lb_av] 173.2 [lb_av] eCW1 ([facility]) Body height 62 [in_i] 62 [in_i] eCW1 ([facility]) Body mass index (BMI) [Ratio] 31.68 kg/m2 31.68 kg/m2 eCW1 ([facility]) Heart rate 72 /min 72 /min eCW1 ([facility]) Respiratory rate 18 /min 18 /min eCW1 ([facility]) Body temperature 97.7 [degF] 97.7 [degF] eCW1 ( [facility]) Systolic blood pressure 140 mm[Hg] 140 mm[Hg] e CW1 ([facility]) Diastolic blood pressure 72 mm[Hg] 72 mm[Hg] eCW1 ([facility]) Body weight 171 [lb_av] 171 [lb_av] eCW1 ([facility] of [facility]) Body height 62 [in_i] 62 [in_i] eCW1 ([facility]) Body mass index (BMI) [Ratio] 31.27 kg/m2 31.27 kg/m2 eCW1 ([facility]) Heart rate 76 /min 76 /min eCW1 ([facility]) Respiratory rate 18 /min 18 /min eCW1 ([facility]) Body temperature 98.6 [degF] 98.6 [degF] eCW1 ( [facility]) Systolic blood pressure 160 mm[Hg] 160 mm[Hg] e CW1 ([facility]) Diastolic blood pressure 74 mm[Hg] 74 mm[Hg] eCW1 ([facility]) Patient Treatment Plan of Care Planned Activity Planned Date Details Description Data Source (s) buspirone hydrochloride 10 MG Oral Tablet 06/15/2020 12:00:00 AM ED T eCW1 ([facility]) buspirone hydrochloride 10 MG Oral Tablet 06/15/2020 12:00:00 AM ED T eCW1 ([facility]) buspirone hydrochloride 10 MG Oral Tablet 06/15/2020 12:00:00 AM ED T eCW1 ([facility]) Sertraline 25 MG Oral Tablet [Zoloft] 04/26/2020 12:00:00 AM EST eCW1 ([facility]) Levothyroxine Sodium 0.075 MG Oral Tablet [Synthroid] 04/07/2020 12:00:00 AM EST eCW1 ([facility])
[2021-02-20 13:59] LABS: RSV AMPLIFICATION NEGATIVE (NEGATIVE)
[2021-02-20] MEDS ORDERED: ISOVUE-370 76% 100ML VIAL As Ordered ONE (14:08)
--- NOTE | 2021-02-20 14:46 | REP ---
INDICATION: r/o left PE. COMPARISON: Chest radiograph today. TECHNIQUE: CT angiogram chest performed following the intravenous administration of 100 cc of Isovue 370. Sagittal and coronal reconstruction images are performed. FINDINGS: Lungs: There are mild bibasilar fibro atelectatic changes. Mediastinum: No adenopathy. Pulmonary arteries: No evidence of pulmonary embolism. Gabriella: No adenopathy. Axilla: No adenopathy. Pleura: No effusion. Heart: Not enlarged. Thoracic aorta: No aneurysm or dissection. Upper abdominal structures: There is a small hiatal hernia. There is questionable thickening of the mid to distal esophagus diffusely.. Visualized osseous structures: There are degenerative changes of the spine without compression fracture. IMPRESSION: No CT evidence of pulmonary embolism. No infiltrate seen. Questionable thickening of mid to distal esophagus, possible esophagitis. <Electronically signed by Boyd Skinner > 02/20/21 [id number]
[2021-02-20 16:33] VITALS: BP 190/100
[2021-02-20] MEDS ORDERED: METO1TAB7 (16:36)
[2021-02-20] MEDS ORDERED: SERT25TA21 (16:36)
[2021-02-20] MEDS ORDERED: DICL75TA (16:36)
[2021-02-20] MEDS ORDERED: MISO100T22 (16:36)
[2021-02-20] MEDS ORDERED: LEVO75TA4 (16:36)
[2021-02-20] MEDS ORDERED: AMIT75TA (16:36)
[2021-02-20] MEDS ORDERED: CARA1TAB6 PO (16:39)
--- NOTE | 2021-02-22 10:11 | ECGEPIP ---
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
== END 2021-02-20 16:51 | disposition home or self-care (01) ==
LOC: M ED 11:46
DX: K20.90 Esophagitis, unspecified without bleeding (principal); R07.9 Chest pain, unspecified; I10 Essential (primary) hypertension; E11.9 Type 2 diabetes mellitus without complications; K21.9 Gastro-esophageal reflux disease without esophagitis; Z86.79 Personal history of other diseases of the circulatory system; Z82.49 Family history of ischemic heart disease and other diseases of the circulatory system; Z88.5 Allergy status to narcotic agent
CPT/HCPCS: 36415; 71045; 71275; 80048; 80076; 83690; 84484; 85025; 87631; 93005; 93041; 94760; 99285; Q9967

== ENCOUNTER → 2021-03-17 | Outpatient (CLI) | payer OTHER ==
[~2021-03-17] MED LIST: AMIT75TA PO; BUSP-29 PO; CALC-218 PO; CARA1TAB6 PO; CIDA500T2 PO; DICL75TA PO; LEVO75TA4 PO; METO1TAB7 PO; MISO100T22 PO; MM S100C PO; OCUVTAB4 PO; OMEP-221 PO; SERT25TA21 PO; VITMTA PO; ZYRTTAB8 PO
== END ==
LOC: M LABSMTC 11:27
PROVIDERS: ATTEND Anesthesiology
DX: Z01.818 Encounter for other preprocedural examination (principal); Z11.52 Encounter for screening for COVID-19

== ENCOUNTER 2021-03-22 06:37 | Day surgery (SDC) | payer OTHER ==
[~2021-03-22] VITALS: Ht 162.6 cm; Wt 75.7 kg
[~2021-03-22 06:37] MED LIST changes: +NS 1,000 ML IV ONE
[2021-03-22] MEDS ORDERED: LIDOCAINE 2% 100MG/5ML SDV (FOR ANES.) As Ordered ONE (07:37)
[2021-03-22] MEDS ORDERED: propofoL 200 MG/20 ML VIAL As Ordered ONE (07:37)
[2021-03-22 08:15] VITALS: BP 197/88
== END 2021-03-22 08:17 | disposition home or self-care (01) ==
LOC: M OPP 06:37
PROVIDERS: ATTEND Surgery
DX: K29.70 Gastritis, unspecified, without bleeding (principal); R93.3 Abnormal findings on diagnostic imaging of other parts of digestive tract; Z79.891 Long term (current) use of opiate analgesic; Z79.899 Other long term (current) drug therapy; Z88.8 Allergy status to other drugs, medicaments and biological substances; Z87.891 Personal history of nicotine dependence

== ENCOUNTER 2021-12-17 06:21 | Emergency (ER) | payer OTHER ==
[~2021-12-17] VITALS: Ht 162.6 cm; Wt 72.7 kg
[~2021-12-17 06:21] MED LIST changes: -NS 1,000 ML IV ONE; -OMEP-221 PO; +OMEP40CA5 PO
[2021-12-17] MEDS ORDERED: vit d3 PO (06:38)
[2021-12-17] MEDS ORDERED: NORCO, ANEXSIA 5/325MG TABLET (HYDROcodone/ACETAMINOPHEN) PO ONE (08:00)
[2021-12-17] MEDS ORDERED: LIDOCAINE 5% (LIDODERM) PATCH TD ONE (08:10)
[2021-12-17] MEDS ORDERED: LIDO5DIS41 TD (08:13)
[2021-12-17 08:45] VITALS: BP 168/78
[2021-12-17] MEDS ORDERED: **NOTE PATIENT COMMENT** MISC XX SCH (21:00)
== END 2021-12-17 08:54 | disposition home or self-care (01) ==
LOC: M ED 06:21
DX: S22.42XA Multiple fractures of ribs, left side, initial encounter for closed fracture (principal); W01.0XXA Fall on same level from slipping, tripping and stumbling without subsequent striking against object, initial encounter; W22.8XXA Striking against or struck by other objects, initial encounter; E11.9 Type 2 diabetes mellitus without complications; I10 Essential (primary) hypertension; F41.9 Anxiety disorder, unspecified; F03.90 Unspecified dementia, unspecified severity, without behavioral disturbance, psychotic disturbance, mood disturbance, and anxiety; Z88.8 Allergy status to other drugs, medicaments and biological substances; Y92.009 Unspecified place in unspecified non-institutional (private) residence as the place of occurrence of the external cause; Y93.9 Activity, unspecified; Y99.9 Unspecified external cause status; Z79.4 Long term (current) use of insulin; Z79.811 Long term (current) use of aromatase inhibitors; Z79.899 Other long term (current) drug therapy

== ENCOUNTER → 2023-01-14 | Outpatient (CLI) | payer OTHER ==
[~2023-01-14] MED LIST changes: -BUSP-29 PO; +BUSP10TA79 PO; +LIDO5DIS41 TD; -MISO100T22 PO; +MISO100T32 PO; +vit d3 PO
[2023-01-14 18:00] LABS: HEMATOCRIT 36.7 % (36.0-47.0); HEMOGLOBIN 11.7 g/dl (12.0-15.5); MEAN CORPUSCULAR HEMOGLOBIN 30.2 pg (27.0-33.0); MEAN CORPUSCULAR HGB CONC 31.9 g/dl (32.0-36.5); MEAN CORPUSCULAR VOLUME 94.6 fl (80.0-96.0); PLATELET COUNT, AUTOMATED 113 10^3/uL (150-450); RED BLOOD COUNT 3.88 10^6/uL (4.00-5.40); WHITE BLOOD COUNT 3.8 10^3/uL (4.0-10.0)
[2023-01-14 18:17] LABS: BLOOD UREA NITROGEN 24 MG/DL (9-23); CALCIUM LEVEL 9.5 MG/DL (8.3-10.6); CARBON DIOXIDE LEVEL 29 MMOL/L (20-31); CHLORIDE LEVEL 105 MMOL/L (98-107); CREATININE FOR GFR 0.81 MG/DL (0.55-1.30); GLOMERULAR FILTRATION RATE > 60.0 (>32); GLUCOSE, FASTING 112 MG/DL (74-106); POTASSIUM SERUM 4.6 MMOL/L (3.5-5.1); SODIUM LEVEL 143 MMOL/L (136-145)
== END ==
LOC: M PLALAB 14:53
PROVIDERS: ATTEND Nurse Practitioner Adult Health
DX: Z09 Encounter for follow-up examination after completed treatment for conditions other than malignant neoplasm (principal); Z86.16 Personal history of COVID-19